=== PATIENT | female | born 1985 | race Caucasian/White ===

== ENCOUNTER 2017-06-13 13:28 | Outpatient (CLI) | payer OTHER ==
[~2017-06-13] VITALS: Ht 165.1 cm; Wt 79.4 kg
[~2017-06-13 13:28] MED LIST: AMIT25TA PO; LIDOCAINE 2% INJ 100 MG/5 ML SDV (FOR ANES.) As Ordered ONE; NARA1TAB PO; NORA0.35 PO; OMEP20CA3 PO; PROPOFOL 200 MG/20 ML VIAL As Ordered ONE
[2017-06-13] MEDS ORDERED: NS 1,000 ML IV SCH (13:30)
--- NOTE | 2017-06-13 15:37 | ROOR ---
Patient Name: Vivien Fierro Procedure Date: 06/13/2017 3:08 PM Date of : 1985 Age: 31 Room: [facility] Gender: Female Note Status: Finalized Procedure: Upper GI endoscopy Indications: Epigastric abdominal pain, Melena Providers: Hamilton Sosa MD Referring MD: Kristin Blevins MD Requesting Provider: Medicines: Monitored Anesthesia Care Complications: No immediate complications. Procedure: Pre-Anesthesia Assessment: - Prior to the procedure, a History and Physical was performed, and patient medications and allergies were reviewed. The patient is competent. The risks and benefits of the procedure and the sedation options and risks were discussed with the patient. All questions were answered and informed consent was obtained. Patient identification and proposed procedure were verified by the physician, the nurse and the finished goods inspector in the procedure room. Mental Status Examination: alert and oriented. Airway Examination: normal oropharyngeal airway and neck mobility. Respiratory Examination: clear to auscultation. CV Examination: normal. Prophylactic Antibiotics: The patient does not require prophylactic antibiotics. Prior Anticoagulants: The patient has taken no previous anticoagulant or antiplatelet agents. ASA Grade Assessment: II - A patient with mild systemic disease. After reviewing the risks and benefits, the patient was deemed in satisfactory condition to undergo the procedure. The anesthesia plan was to use monitored anesthesia care (MAC). Immediately prior to administration of medications, the patient was re-assessed for adequacy to receive sedatives. The heart rate, respiratory rate, oxygen saturations, blood pressure, adequacy of pulmonary ventilation, and response to care were monitored throughout the procedure. The physical status of the patient was re-assessed after the procedure. The Endoscope was introduced through the mouth, and advanced to the second part of duodenum. The upper GI endoscopy was accomplished without difficulty. The patient tolerated the procedure well. Findings: The examined esophagus was normal. Diffuse moderate inflammation characterized by erosions, erythema and granularity was found in the gastric body and in the gastric antrum. Biopsies were taken with a cold forceps for histology. Biopsies were taken with a cold forceps for Helicobacter pylori testing. A few 6 mm sessile fundic gland polyps with no stigmata of recent bleeding were found in the gastric fundus. Biopsies were taken with a cold forceps for histology. There is no endoscopic evidence of ulceration in the entire examined stomach. The duodenal bulb and second portion of the duodenum were normal. Biopsies for histology were taken with a cold forceps for evaluation of celiac disease. Impression: - Normal esophagus. - Gastritis. Biopsied. - A few fundic gland polyps. Biopsied. - Normal duodenal bulb and second portion of the duodenum. Biopsied. Recommendation: - Patient has a contact number available for emergencies. The signs and symptoms of potential delayed complications were discussed with the patient. Return to normal activities tomorrow. Written discharge instructions were provided to the patient. - Resume previous diet. - Continue present medications. - No aspirin, ibuprofen, naproxen, or other non-steroidal anti-inflammatory drugs. - Await pathology results. - Telephone GI clinic for pathology results in 1 week. - Return to primary care physician. Hamilton Sosa MD Hamilton Sosa MD 06/13/2017 3:37:13 PM This report has been signed electronically. Number of Addenda: 0 Note Initiated On: 06/13/2017 3:08 PM Estimated Blood Loss: Estimated blood loss was minimal.
[2017-06-13 16:00] VITALS: BP 148/93
== END 2017-06-13 16:06 | disposition home or self-care (01) ==
LOC: M OPP 13:28
PROVIDERS: ATTEND Internal Medicine Gastroenterology
DX: R10.13 Epigastric pain (principal); K92.1 Melena; K31.7 Polyp of stomach and duodenum; K29.70 Gastritis, unspecified, without bleeding; I10 Essential (primary) hypertension; R12 Heartburn; R06.83 Snoring; Z87.442 Personal history of urinary calculi; G43.909 Migraine, unspecified, not intractable, without status migrainosus; Z88.0 Allergy status to penicillin; Z88.8 Allergy status to other drugs, medicaments and biological substances; Z91.040 Latex allergy status; Z79.899 Other long term (current) drug therapy; Z80.8 Family history of malignant neoplasm of other organs or systems

== ENCOUNTER → 2021-06-04 | Outpatient (REF) | payer OTHER ==
[~2021-06-04] MED LIST changes: -AMIT25TA PO; +AMIT25TA17 PO; -LIDOCAINE 2% INJ 100 MG/5 ML SDV (FOR ANES.) As Ordered ONE; +OMEP1CAP73 PO; -OMEP20CA3 PO; -PROPOFOL 200 MG/20 ML VIAL As Ordered ONE
== END ==
LOC: M LAB REF 13:23
PROVIDERS: ATTEND Internal Medicine Nephrology
DX: Q61.5 Medullary cystic kidney (principal); I10 Essential (primary) hypertension

== ENCOUNTER → 2021-12-10 | Outpatient (REF) | payer OTHER | LOC: M LAB REF 12:57 | PROVIDERS: ATTEND Nurse Practitioner Family | DX: N39.0 Urinary tract infection, site not specified (principal) ==

== ENCOUNTER → 2023-11-13 | Outpatient (REF) | payer OTHER ==
[~2023-11-13] MED LIST changes: -AMIT25TA17 PO; +AMIT25TA19 PO
== END ==
LOC: M LAB REF 17:04
PROVIDERS: ATTEND Internal Medicine Endocrinology, Diabetes & Metabolism
DX: E04.1 Nontoxic single thyroid nodule (principal)